=== PATIENT | male | born 1945 | race Hispanic/Latino ===

== ENCOUNTER 2019-09-18 05:58 | Day surgery (SDC) | payer OTHER ==
--- NOTE | 2019-09-18 07:04 | Anesthesia Day of Surgery ---
Anesthesia Day of Surgery - Day of Surgery Patient Examined: Yes Patient H&P Reviewed: Yes Patient is NPO: Yes
--- NOTE | 2019-09-18 07:08 | Anesthesia Consultation ---
Anesthesia Consult and Med Hx Date of service: 09/18/19 - Airway Anesthetic Teeth Evaluation: Chipped, Crowns ROM Head & Neck: Adequate Mental/Hyoid Distance: Adequate Mallampati Class: Class II Intubation Access Assessment: Probably Good - Pre-Operative Health Status ASA Pre-Surgery Classification: ASA2 Proposed Anesthetic Plan: General - Pulmonary Hx Smoking: Yes (STOPPED X 12 YRS) Hx Respiratory Symptoms: No (States he can climb up two flights of stairs) Hx Sleep Apnea: No (GOKUL PRE SCREEN HIGH RISK) - Cardiovascular System Hx Hypertension: Yes (X 12 YRS) - Endocrine Hx Liver Disease: Yes (Had Hep C and got treated and states he is clear) - Other Systems Hx Substance Use: Yes (OCC MARIJUANA) Hx Cancer: No
[2019-09-18] MEDS ORDERED: ACETAMINOPHEN 325 MG TAB PO NR (07:09)
[2019-09-18] MEDS ORDERED: fentaNYL 100 MCG/2 ML INJ IV PRN (07:30)
[2019-09-18] MEDS ORDERED: ONDANSETRON 4 MG/2 ML INJ IV PRN (07:30)
[2019-09-18] MEDS ORDERED: MAGNESIUM OXIDE 400 MG TAB PO SCH (07:30)
[2019-09-18] MEDS ORDERED: LIDOCAINE MPF (2%) 20 MG/1 ML VIAL 5 ML ONE (07:43)
[2019-09-18] MEDS ORDERED: propofoL 200 MG/20 ML VIAL IV ONE (07:44)
[2019-09-18] MEDS ORDERED: fentaNYL 100 MCG/2 ML INJ ONE (07:44)
[2019-09-18] MEDS ORDERED: CELECOXIB 200 MG CAP PO SCH (08:00)
[2019-09-18] MEDS ORDERED: ceFAZolin/STERILE WATER 2 GM/20 ML SYRINGE IV NR (08:00)
[2019-09-18] MEDS ORDERED: LACTATED RINGERS 1,000 ML IV SCH (08:00)
[2019-09-18] MEDS ORDERED: ONDANSETRON 4 MG/2 ML INJ ONE (08:35)
[2019-09-18] MEDS ORDERED: WATER FOR IRRIG STERILE 2000 ML IR ONE (09:03)
--- NOTE | 2019-09-18 09:23 | Operative Report ---
PREOPERATIVE DIAGNOSES: Bladder outlet obstruction, large prostate. POSTOPERATIVE DIAGNOSES: Bladder outlet obstruction, large prostate. PROCEDURE: Cystoscopy, resume therapy. SURGEON: Dr. Root. ANESTHESIA: General. FINDINGS: This is a gentleman with a large prostate. All the options were given and wants to try resume therapy. His gland is about 60 grams on MRI. It feels smaller on exam. DESCRIPTION OF PROCEDURE: The patient was brought to the operating room and placed on the operating table. Following induction of anesthesia, placed in lithotomy position, prepped and draped in usual sterile fashion. Cystourethroscopy was carried out, showed mostly bilobar hypertrophy, little larger on the right than the left with a small median bar. Bladder was 2+ trabeculated. No bladder tumors were noted. The resume device was placed. We did 3 sticks on the right, 2 on the left and one in the median bar just off to the left side on that median bar. The patient tolerated the procedure well. A 20 coude was easily placed and brought to recovery in stable condition. No significant bleeding. Family notified. JOB# [id number] PATT/JOSEPH
--- NOTE | 2019-09-18 09:28 | Post Operative Note ---
Date of procedure: 09/18/19 Pre-op diagnosis: bph Post-op diagnosis: same Procedure: cysto rezum Anesthesia: GETA Estimated blood loss: none Pathology: none Condition: stable Disposition: PACU
--- NOTE | 2019-09-18 09:29 | Discharge Summary ---
Short Stay Discharge Plan Activity: other (no staining ) Weight Bearing Status: Full Weight Bearing Diet: low fat, low cholesterol, low salt Special Instructions: other (inc fluids ) Durable Medical Equipment Needed Upon Discharge: other ([facility] ) Follow up with: [facility] [Primary Care Provider] - 7 Days JAMIE NAILS MD [Staff Physician] - 7 Days
[2019-09-18 11:13] VITALS: BP 146/81
== END 2019-09-18 05:59 | disposition home or self-care (01) ==
LOC: OR 05:58
PROVIDERS: ATTEND Urology
DX: N32.0 Bladder-neck obstruction (principal); N40.0 Benign prostatic hyperplasia without lower urinary tract symptoms; G62.9 Polyneuropathy, unspecified; E78.00 Pure hypercholesterolemia, unspecified; I10 Essential (primary) hypertension; K21.9 Gastro-esophageal reflux disease without esophagitis; Z87.442 Personal history of urinary calculi; Z80.42 Family history of malignant neoplasm of prostate; Z87.891 Personal history of nicotine dependence; Z79.899 Other long term (current) drug therapy
CPT/HCPCS: 53854; A4217; J0690; J2405; J2704; J3010; J7120